=== PATIENT | female | born 1940 | race Caucasian/White ===

== ENCOUNTER 2019-06-20 21:19 | Emergency (ER) | payer OTHER ==
[~2019-06-20] VITALS: Ht 162.6 cm; Wt 37.2 kg
[~2019-06-20 21:19] MED LIST: ALBMDI; ALBMDI INH; BIMA2.5D5 OP; DOCU-144 PO; HYDR-1189 PO; LEVO88TA2 PO; POTA20TA83 PO
[2019-06-20 21:25] VITALS: BP_SYST 155
--- NOTE | 2019-06-20 21:28 | NUR ---
Patient to ER bed 05 to gown for evaluation. Side rails up.
--- NOTE | 2019-06-20 21:37 | NUR ---
ER at bedside examining patient.
--- NOTE | 2019-06-20 21:45 | NUR ---
Pt came to the ED for ABD pain with n/v Eli Elias is a 78-year-old Female who presents to the ED for acute abdominal pain associated with nausea, vomiting, and generalized weakness that started last night. The patient also reports having cold and hot sweats last night but that has since resolved. Currently, the patient reports that her pain is a 5/10 in severity. She reports that she has had intermittent episodes of vomiting every 1.5 hours since yesterday. She reports that she has not been able to eat or drink today which prompted her to come to the ED for further evaluation and treatment. She reports that she has a history of colon surgery 4 years ago and was informed that she may have flare ups of colitis in the future. She reports that her symptoms may be attributed to colitis. Otherwise, no fever, chest pain, shortness of breath, diarrhea, dizziness, dysuria, or hematuria. Addendum: 06/21/19 at 0353 by [email or web address] Pt came to the ED for ABD pain with n/v and generalized weakness that started last night. Reports that pt is having cold and hot sweats last night but it has since resolved. Pt reports that pain is 5/0. Pt reports she had intermitent episodes of vomiting and she has not had much to drink/eat today. HX of colon surgery 4 years ago. Denies n/v/d or fever. No other complaints/injuries noted. Will cont. to monitor.
[2019-06-20 22:00] LABS: BASOPHILS % (AUTO) 0.4 % (0.0-2.0); EOSINOPHILS % (AUTO) 0.2 % (0.0-4.0); HEMATOCRIT 39.8 % (36-48); HEMOGLOBIN 13.6 g/dL (12.0-16.0); LYMPHOCYTES # (AUTO) 0.8 K/uL (1.0-5.5); LYMPHOCYTES % (AUTO) 12.8 % (20.5-51.5); MEAN CORPUSCULAR HEMOGLOBIN 33 pg (27-31); MEAN CORPUSCULAR HGB CONC 34 % (32-36); MEAN CORPUSCULAR VOLUME 95 fL (79.0-98.0); MONOCYTES # (AUTO) 0.8 K/uL (0.0-1.0); MONOCYTES % (AUTO) 12.2 % (1.7-9.3); NEUTROPHILS # (AUTO) 4.7 K/uL (1.8-7.7); NEUTROPHILS % (AUTO) 74.4 % (40.0-70.0); PLATELET COUNT (AUTO) 396 K/uL (130-430); RED BLOOD CELL COUNT(AUTO) 4.18 MIL/uL (4.2-6.2); RED CELL DISTRIBUTION WIDTH 13.8 % (9.0-15.0); WHITE BLOOD COUNT (AUTO) 6.4 K/uL (4.8-10.8)
[2019-06-20] MEDS ORDERED: NACL 0.9% 1,000 ML IV ONE (22:00)
[2019-06-20 22:25] LABS: ALANINE AMINOTRANSFERASE 28 U/L (12-78); ANION GAP 8 (5-15); ASPARTATE AMINOTRANSFERASE 29 U/L (10-37); CALCIUM 9.5 mg/dL (8.4-11.0); CHLORIDE 96 mmol/L (98-107); CREATININE 0.68 mg/dL (0.55-1.30); GLUCOSE 117 mg/dL (70-99); LIPASE 80 U/L (73-393); POTASSIUM 4.2 mmol/L (3.5-5.1); SODIUM SERUM 132 mmol/L (136-145); TOTAL BILIRUBIN 1.2 mg/dL (0.0-1.0); UREA NITROGEN, BLOOD 17 mg/dL (8-21)
[2019-06-20] MEDS ORDERED: ALPHAGAN1 OP (22:25)
[2019-06-20] MEDS ORDERED: LEVO112T2 PO (22:25)
--- NOTE | 2019-06-20 22:30 | NUR ---
PT resting comfortably in bed, with friend at bedside.
--- NOTE | 2019-06-20 22:30 | NUR ---
PT resting comfortably in bed, with friend at bedside.
[2019-06-20 22:41] LABS: BILIRUBIN,URINE NEGATIVE (NEGATIVE); BLOOD, URINE NEGATIVE (NEGATIVE); CLARITY/URINE CLEAR (CLEAR); COLOR,URINE YELLOW (YELLOW); GLUCOSE,URINE NEGATIVE (NEGATIVE); KETONES,URINE NEGATIVE (NEGATIVE); LEUKOCYTE ESTERASE ,URINE TRACE (NEGATIVE); NITRITE, URINE NEGATIVE (NEGATIVE); PROTEIN URINE NEGATIVE (NEGATIVE); UROBILINOGEN,URINE 0.2 (0.2-1.0)
[2019-06-20 22:51] LABS: BACTERIA,URINE FEW /HPF (None Seen); MUCUS,URINE None Seen /LPF (None Seen); RBC,URINE 0-3 /HPF (0-3)
[2019-06-20] MEDS ORDERED: cefTRIAXone 1 GM in D5W 50 ML IV ONE (23:30)
--- NOTE | 2019-06-21 | NUR ---
Dr. Sykes speaking to pt about results.
[2019-06-21] MEDS ORDERED: cefTRIAXone 1 GM VIAL ONE (00:39)
[2019-06-21 01:38] VITALS: BP_SYST 130
--- NOTE | 2019-06-21 01:38 | NUR ---
Patient given written and verbal discharge instructions and verbalizes understanding. ER MD Dr. Sykes discussed with patient the results and treatment provided. Patient in stable condition. ID arm band removed. IV catheter removed intact and dressing applied, no active bleeding. Rx of keflex given. Patient educated on pain management and to follow up with PMD. Pain Scale 0/10. Opportunity for questions provided and answered. Medication side effect fact sheet provided.
== END 2019-06-21 01:38 | disposition home or self-care (01) ==
LOC: SED 21:19
DX: N39.0 Urinary tract infection, site not specified (principal); R03.0 Elevated blood-pressure reading, without diagnosis of hypertension; Z90.710 Acquired absence of both cervix and uterus; Z79.899 Other long term (current) drug therapy
CPT/HCPCS: 36415; 80053; 81000; 83690; 85025; 87040; 87086; 96361; 96365; 99283; J0696; J7030